=== PATIENT | female | born 1965 | race Two or more races ===

== ENCOUNTER 2019-02-17 21:25 | Emergency (ER) | payer SELFPAY ==
[~2019-02-17] VITALS: Ht 154.9 cm; Wt 99.8 kg
[~2019-02-17 21:25] MED LIST: ATEN50TA; HYDR25TA4; IBUP800T24
[2019-02-17 21:58] VITALS: BP 171/75
[2019-02-18] MEDS ORDERED: ALBUTEROL SULF 2.5 MG/0.5ML(0.5%) NEB SOLN NEB ONE
[2019-02-18] MEDS ORDERED: IPRATROPIUM BROM 0.5 MG/2.5ML INH SOL NEB ONE
[2019-02-18] MEDS ORDERED: IBUPROFEN 800 MG TAB PO ONE (00:15)
[2019-02-18] MEDS ORDERED: ACETAMINOPHEN 500 MG TAB PO ONE (00:15)
== END 2019-02-18 00:39 | disposition home or self-care (01) ==
LOC: ER 21:26
DX: J40 Bronchitis, not specified as acute or chronic (principal); M94.0 Chondrocostal junction syndrome [Tietze]; I10 Essential (primary) hypertension
CPT/HCPCS: 71046; 94640; 99283; J7611; J7644; 93005